=== PATIENT | female | born 1960 | race Caucasian/White ===

== ENCOUNTER → 2024-05-15 | Outpatient (CLI) | payer BC ==
--- NOTE | 2024-05-15 13:43 | BD ---
EXAMINATION TYPE: Axial Bone Density DATE OF EXAM: 05/15/2024 CLINICAL HISTORY: 63 years old Female. ICD-10 CODE: Z780 POST NEGRITA WITHOUT HRT Height: 66.2 in Weight: 125 lbs FRAX RISK QUESTIONS: History of Fracture in Adulthood: rt heel fx age 54 Secondary Osteoporosis: Current Tobacco Use: yes RISK FACTORS HISTORY OF: Surgery to Hip(left): 05/2012 EXAM MEASUREMENTS: Bone mineral densitometry was performed using the [email or web address] System. Bone mineral density as measured about the Lumbar spine is: ----- L1-L4(G/cm2): 1.222 T Score Values are as follows: ----- L1: -2.5 ----- L2: 0.6 ----- L3: 2.3 ----- L4: 0.3 ----- L1-L4: 0.4 Z Score Values are as follows: ----- L1: -0.6 ----- L2: 2.5 ----- L3: 4.1 ----- L4: 2.1 ----- L1-L4: 2.2 Bone mineral density baseline Bone mineral density about the R hip (g/cm2): 0.802 T Score values are as follows: -----R Neck: -1.9 -----R Total: -1.6 Z Score values are as follows: -----R Neck: -0.3 -----R Total: -0.3 Bone mineral density baseline FRAX%s: The graph provided illustrates a 15.5% chance for a major osteoporotic fx and a 3.8% chance f or the hips probability for fx in 10 years time. IMPRESSION: Osteopenia (T Score between -2.5 and -1). There is slightly increased risk of fracture and the patient may be considered for treatment. Re-Screen 2-5 years. NOTE: T-SCORE=SD OF THE YOUNG ADULT MEAN.
--- NOTE | 2024-05-15 14:41 | CT ---
EXAMINATION TYPE: CT abdomen pelvis wo/w con CT DLP: 606.5 mGycm, Automated exposure control for dose reduction was used. DATE OF EXAM: 05/15/2024 1:58 PM COMPARISON: Same day CT. CLINICAL INDICATION:Female, 63 years old with history of R19.00 intra abdominal swelling hx tobacco use; intra abdominal swelling/bloating, abd pain TECHNIQUE: Axial CT abdomen pelvis wo/w con;Sagittal and coronal reformats were created on a [employer] workstation. Contrast used:100ml mL of Isovue 300 without and with IV Contrast, (none if empty) Oral contrast used: with Oral Contrast (none if empty) FINDINGS: LOWER CHEST: Unremarkable ABDOMEN LIVER: Unremarkable GALLBLADDER AND BILE DUCTS: Unremarkable. PANCREAS: Unremarkable. SPLEEN: Unremarkable. ADRENAL GLANDS: Unremarkable. KIDNEYS AND URETERS: No evidence of hydronephrosis or renal calculus. The ureters are unremarkable. PELVIS BLADDER: Unremarkable REPRODUCTIVE: Right with displacement of the uterus. ABDOMEN & PELVIS STOMACH AND BOWEL: No evidence of bowel obstruction. PERITONEUM/RETROPERITONEUM: No evidence of pneumoperitoneum or free fluid. Large abdominal cystic mas s measuring up to 25 x 19.6 x 20 cm this extends down into the pelvis slightly left greater than righ t with displacement of the uterus to the right. VASCULATURE: Mild atherosclerotic calcifications are present throughout the abdominal aorta and its b ranches. No evidence of aortic aneurysm. MUSCULOSKELETAL: No acute osseous abnormalities LYMPH NODES: No gross evidence for lymphadenopathy. SOFT TISSUE/ABDOMINAL WALL: Unremarkable IMPRESSION: Large abdominal cystic mass measuring up to 25 x 19.6 x 20 cm with associated intra-abdominal ascites . Findings concerning for ovarian cystic neoplasm until proven otherwise. Oncologic workup recommende d. Given the ascites in the abdomen omental carcinomatosis is not excluded at this time.
--- NOTE | 2024-05-15 14:42 | CTL ---
EXAMINATION TYPE: CT Low Dose Lung DATE OF EXAM: 05/15/2024 1:57 PM CLINICAL INDICATION:Female, 63 years old with history of hx tobacco use; personal hx of nicotine depe ndence 1ppd X 45 years current smoker , history of tobacco use. COMPARISON: None. TECHNIQUE: Multiple axial non-contrast scans were obtained from approximately the lung apices through the upper abdomen. Coronal and sagittal reformatted images were obtained. Low dose technique was uti lized. CT DLP: 45.9 mGycm, Automated exposure control for dose reduction was used. CT Contrast: Contrast used: None Oral contrast used: None FINDINGS: ======== Lack of intravenous contrast and low dose technique limits the evaluation of the vascular and soft ti ssue structures. LUNGS: No evidence of pulmonary fibrosis. No evidence of focal consolidation, pneumothorax or pleural effusion. Centrilobular emphysema changes. Right posterior [place] fat-containing hernia. Nodules: RUL: None. RML: None. RLL: 4 mm series 5 image 46. GONZALES: None. LLL: 4 mm series 5 image 49 possibly representing scarring. AIRWAY: Patent and unremarkable. HEART: Size within normal limits. Atherosclerosis of the coronary arteries. MEDIASTINUM: No gross evidence of adenopathy. Moderate hiatal hernia. VASCULATURE: No aortic aneurysm. MUSCULOSKELETAL: No acute osseous abnormalities SOFT TISSUES/LYMPH NODES: Unremarkable. LOWER NECK: No significant findings. UPPER ABDOMEN: Upper abdominal ascites. IMPRESSION: 1. No clinically significant pulmonary nodules. 2. Mild emphysema. 3. Small ascites. 4. Moderate hiatal hernia. 5. Large abdominal cystic mass measuring up to 25 x 19.6 x 20 cm with associated intra-abdominal asci angelica. Findings concerning for ovarian cystic neoplasm until proven otherwise. Oncologic workup recomme nded. Given the ascites in the abdomen omental carcinomatosis is not excluded at this time. CT LUNG RAD AND CT CHEST RECOMMENDATION: Lung-Rad 2 Benign Appearance or Behavior: Continue annual sc reening with LDCT in 12 months. S Modifier (other clinically significant findings): None Recommend smoking cessation (if current smoker), or continuation of smoking cessation (if prior smoke r). Annual screening for lung cancer with low-dose computed tomography is recommended in adults ages 55 to 77 years who have a 30 pack-year smoking history and currently smoke or have quit within the pa st 15 years. Screening should be discontinued once a person has not smoked for 15 years or develops a health problem that substantially limits life expectancy or the ability or willingness to have curat shawn lung surgery. Lung rads 2021 [email or web address]
--- NOTE | 2024-05-19 17:08 | MM ---
Reason for Exam: Screening (asymptomatic). Baseline mammogram. Patient History: Menarche at age 16. First Full-Term at age 27. Risk Values: Nadnie 5 year model risk: 1.6%. NCI Lifetime model risk: 6.6%. Prior Study Comparison: Patient's first Mammogram. Tissue Density: The breasts are heterogeneously dense, which may obscure small masses. Findings: Analyzed By CAD. Benign vascular calcifications on the right. No significant mass, suspicious microcalcification, or other discrete abnormality is seen. Overall Assessment: Benign, BI-RAD 2 Management: Screening Mammogram of both breasts in 1 year. . Patient should continue monthly self-breast exams. A clinical breast exam by your physician is recommended on an annual basis. This exam should not preclude additional follow-up of suspicious palpable abnormalities. Note on Nadine scores and lifetime risk: 1. A Nadine score greater than 3% is considered moderate risk. If this is the case, consider specialist referral to assess eligibility for a risk reducing agent. 2. If overall lifetime risk for the development of breast cancer is 20% or higher, the patient may qualify for future screening with alternating mammogram and breast MRI. Electronically signed and approved by: Makenzie Mar M.D. Radiologist
== END | disposition home or self-care (01) ==
LOC: RADMAMWWP 10:23
PROVIDERS: ATTEND Family Medicine
DX: Z12.31 Encounter for screening mammogram for malignant neoplasm of breast (principal); Z12.2 Encounter for screening for malignant neoplasm of respiratory organs; R18.8 Other ascites; J43.9 Emphysema, unspecified; K44.9 Diaphragmatic hernia without obstruction or gangrene; M81.0 Age-related osteoporosis without current pathological fracture; Z78.0 Asymptomatic menopausal state; F17.210 Nicotine dependence, cigarettes, uncomplicated
CPT/HCPCS: 77080; 77067; 77063; 74178; 71271; Q9967

== ENCOUNTER → 2024-05-29 | Outpatient (CLI) | payer BC ==
--- NOTE | 2024-05-29 15:48 | CA ---
Exercise Stress Test Report Name: Kaylyn Aguilar Exam Date: 05/29/2024 10:57 Exam Location: [place] Stress Ht (in): 68 Wt (lb): 129 BSA: 1.70 Ordering Phys: Jerome Lange MD Referring Phys: Brigitte Church [facility] Technologist: Lance Boston Age: 63 Gender: F : 1960 Procedure CPT: Indications: R94.31 ABNORMAL ELECTROCARDIOGRAM [ECG] [EKG] ICD-10 Codes: Patient History: Medications: METOPROLOL, POTASSIUM CHLORIDE, FUROSIMIDE Meds past 24 hrs: Pretest Chest Pain: STRESS TEST Brian Protocol Exercise Duration (min:sec): 04:[address] Depressions (mm): Angina Score: Witt Score: Resting HR (bpm): 77 Peak HR (bpm): 136 Resting BP (mmHg): 115 / 70 Peak BP (mmHg): 162 / 77 MPHR: 156 Target HR: 133 % MPHR: 87 METS: 6.5 Total Dose: Peak Dose: Atropine: Double Product: 10219 BP Response: Stress Termination: Reached target heart rate Stress Symptoms: SHORT OF BREATH Stress Summary: ECG ANALYSIS Resting ECG: Stress ECG: CONCLUSIONS Patient underwent exercise stress EKG with a Brian protocol treadmill stress test. Patient exercised into Stage 2 for a total of 4 minutes and 6 seconds reaching a total of 6.5 METS. Patient's maximum heart rate was 136 which represented 87% age- predicted maximum heart rate. Stress EKG findings: At baseline patient's EKG showed normal sinus rhythm, normal axis, no significant ST or T wave abnormalities. At peak exercise, EKG showed no significant change from baseline. Conclusions: 1. Normal EKG response to exercise without evidence of inducible ischemia. 2. Fair exercise capacity. Dr. Fermin Cordero DO (Electronically Signed) Final Date: 29 May 2024 15:47
== END | disposition home or self-care (01) ==
LOC: RADNMMAIN 10:33
PROVIDERS: ATTEND Family Medicine
DX: R94.31 Abnormal electrocardiogram [ECG] [EKG] (principal)
CPT/HCPCS: 93017